=== PATIENT | female | born 1975 | race Caucasian/White ===

== ENCOUNTER 2016-06-30 22:58 | Emergency (ER) | payer OTHER ==
[2016-07-01 02:24] VITALS: BP 150/95
== END 2016-07-01 02:24 | disposition home or self-care (01) ==
LOC: ED 22:58
DX: R19.7 Diarrhea, unspecified (principal); R03.0 Elevated blood-pressure reading, without diagnosis of hypertension; Z79.899 Other long term (current) drug therapy